=== PATIENT | male | born 1955 | race Caucasian/White ===

== ENCOUNTER 2020-08-10 17:56 | Emergency (ER) | payer OTHER ==
[~2020-08-10] VITALS: Ht 167.6 cm; Wt 90.0 kg
[2020-08-10] MEDS ORDERED: ACETAMINOPHEN 500 MG TABLET PO ONE (18:00)
--- NOTE | 2020-08-10 18:05 | NUR ---
PT BIBA FOR GLF C/O FACE/NOSE PAIN. ABRASIONS NOTED ON NOSE. DENIES LOC, NOT ON BLOOD THINNERS, NO ACTIVE BLEEDING NOTED.
[2020-08-10] MEDS ORDERED: ACETAMINOPHEN 500 MG TABLET ONE (18:07)
--- NOTE | 2020-08-10 18:10 | NUR ---
PT TO XRAY.
[2020-08-10] MEDS ORDERED: PLEASE ENTER ALLERGIES MC SCH (18:30)
[2020-08-10] MEDS ORDERED: PLEASE ENTER HEIGHT AND WEIGHT MC SCH (18:30)
[2020-08-10 19:07] VITALS: BP 114/69
== END 2020-08-10 19:30 | disposition home or self-care (01) ==
LOC: ED 18:30
DX: S00.33XA Contusion of nose, initial encounter (principal); I10 Essential (primary) hypertension; W01.0XXA Fall on same level from slipping, tripping and stumbling without subsequent striking against object, initial encounter; Y93.89 Activity, other specified; Y92.410 Unspecified street and highway as the place of occurrence of the external cause; Y99.8 Other external cause status
CPT/HCPCS: 70160; 99283